=== PATIENT | female | born 1985 | race African-American/Black ===

== ENCOUNTER 2016-05-06 15:30 | Emergency (ER) | payer SELFPAY ==
[~2016-05-06] VITALS: Ht 160 cm; Wt 85.0 kg
[~2016-05-06 15:30] MED LIST: FERR-43 PO
[2016-05-06] MEDS ORDERED: KETOROLAC 60MG/2ML VIAL IM ONE (17:00)
[2016-05-06 18:05] LABS: GLUCOSE URINE NEGATIVE (NEGATIVE); KETONES URINE NEGATIVE (NEGATIVE); LEUKOCYTE ESTERASE URINE TRACE (NEGATIVE); NITRITE URINE NEGATIVE (NEGATIVE); OCCULT BLOOD URINE NEGATIVE (NEGATIVE); PH URINE 8.5 (4.5-8.0); PROTEIN URINE 2+ (NEGATIVE); SPECIFIC GRAVITY URINE 1.021 (1.005-1.030); UROBILINOGEN URINE 0.2 E.U./dL (0.2-1.0)
[2016-05-06 18:14] LABS: CLARITY URINE HAZY (CLEAR); COLOR URINE YELLOW (YELLOW)
[2016-05-06 18:31] LABS: RBC URINE NONE SEEN /hpf (0-2); SQUAMOUS EPITHELIAL CELL URINE 1+ /lpf (RARE/1+); WBC URINE 0-2 /hpf (0-2)
[2016-05-06 18:32] LABS: BACTERIA URINE 4+
[2016-05-06 19:06] VITALS: BP 109/66
== END 2016-05-06 19:08 | disposition home or self-care (01) ==
LOC: ER 15:30
DX: N83.209 Unspecified ovarian cyst, unspecified side (principal); D64.9 Anemia, unspecified; F31.9 Bipolar disorder, unspecified; E11.9 Type 2 diabetes mellitus without complications; Z98.890 Other specified postprocedural states
CPT/HCPCS: 81001; 81025; 99283; J1885; Z7610

== ENCOUNTER 2019-07-16 10:00 | Emergency (ER) | payer MEDICAID | END 2019-07-16 14:26 | disposition left against medical advice (07) | LOC: ER 10:00 | DX: Z53.21 Procedure and treatment not carried out due to patient leaving prior to being seen by health care provider (principal) ==

== ENCOUNTER 2020-07-16 11:16 | Emergency (ER) | payer MEDICAID ==
[~2020-07-16] VITALS: Ht 172.7 cm; Wt 79.0 kg
[2020-07-16] MEDS ORDERED: SODIUM CHLORIDE 0.9% 1,000 ML IV ONE (11:45)
[2020-07-16 12:04] LABS: HEMATOCRIT. 24.5 % (36.0-48.0); HEMOGLOBIN. 7.2 g/dL (12.0-16.0); MEAN CORPUSCULAR HEMOGLOBIN 17.2 pg (28.0-32.0); MEAN CORPUSCULAR VOLUME 58.6 fL (81.0-99.0); MEAN PLATELET VOLUME 8.3 fl (7.4-10.4); PLATELET 400 x1000/uL (130-400); RED BLOOD CELL COUNT 4.18 mill/uL (4.2-5.4); RED CELL DISTRIBUTION WIDTH 21.4 % (11.6-14.6)
[2020-07-16 12:08] LABS: CHLORIDE 103 mEq/L (98-107)
[2020-07-16 12:10] LABS: HCG SCREEN NEGATIVE
[2020-07-16 12:19] LABS: B-HCG QUANTITATIVE < 1 mIU/mL (<3)
[2020-07-16] MEDS ORDERED: KETOROLAC 30MG/ML VIAL IV ONE (12:30)
[2020-07-16 12:43] LABS: CLARITY URINE TURBID (CLEAR); COLOR URINE RED (YELLOW); KETONES URINE NEGATIVE (NEGATIVE); LEUKOCYTE ESTERASE URINE 2+ (NEGATIVE); NITRITE URINE POSITIVE (NEGATIVE); OCCULT BLOOD URINE 2+ (NEGATIVE); PROTEIN URINE 2+ (NEGATIVE); SPECIFIC GRAVITY URINE 1.024 (1.005-1.030)
[2020-07-16 12:48] LABS: PLATELET ESTIMATE NORMAL
[2020-07-16] MEDS ORDERED: POTASSIUM CHLORIDE 20MEQ TABLET SR PO ONE (13:30)
[2020-07-16] MEDS ORDERED: IBUP-2029 MT (13:36)
[2020-07-16] MEDS ORDERED: PYR200 MT (13:36)
[2020-07-16] MEDS ORDERED: IRON-11 PO (13:36)
[2020-07-16] MEDS ORDERED: NITR-87 MT (13:36)
[2020-07-16 14:30] VITALS: BP 122/76
== END 2020-07-16 16:15 | disposition home or self-care (01) ==
LOC: ER 11:21
DX: N39.0 Urinary tract infection, site not specified (principal); D64.9 Anemia, unspecified; R30.0 Dysuria; E11.9 Type 2 diabetes mellitus without complications; Z98.890 Other specified postprocedural states; Z86.59 Personal history of other mental and behavioral disorders
CPT/HCPCS: 36415; 76856; 80053; 81003; 81025; 84702; 84703; 85025; 86850; 86900; 86901; 96361; 96374; 99284; J1885; J7030